=== PATIENT | female | born 1980 | race Hispanic/Latino ===

== ENCOUNTER 2016-04-29 10:38 | Emergency (ER) | payer OTHER ==
[~2016-04-29] VITALS: Ht 167.6 cm; Wt 72.3 kg
[~2016-04-29 10:38] MED LIST: BIRTH CONTROL PILL PO; ENDOCET 5-3251 EACH PO; ESTRADIOL1 MG PO; IBUPROFEN800 MG PO; MOTRIN600 MG PO; MOTRIN800 MG PO; MULTIPLE VITAM1 EAC1 PO; WOMEN'S DAILY1 EAC1 PO
[2016-04-29 11:33] LABS: HEMATOCRIT 34.3 % (36.0-46.0); MCH 28.1 PG (29.0-34.0); MCHC 33.8 G/DL (30.0-36.0); MCV 83.1 FL (83-99); MEAN PLAT.VOLUME 10.4 uM^3 (9.5-12.4); PLATELET COUNT 352 K/uL (156-360); RBC DIS.WIDTH-CV 13.9 % (11.8-14.6); RBC DIS.WIDTH-SD 40.3 % (39-53); RED BLOOD COUNT 4.13 M/uL (3.80-5.20); WHITE BLOOD COUNT 8.9 K/uL (4.1-10.2)
[2016-04-29 11:44] LABS: CHLORIDE 110 mEq/L (99-109); POTASSIUM 3.8 mEq/L (3.7-5.4); SODIUM 140 mEq/L (136-147)
[2016-04-29 11:46] LABS: GLUCOSE 87 mg/dL (70-99)
[2016-04-29 11:47] LABS: ANION GAP 9 MEQ/L (2-14)
[2016-04-29 11:48] LABS: TOTAL BILIRUBIN 0.3 mg/dL (0.0-1.0)
[2016-04-29 11:49] LABS: ALKALINE PHOSPHATASE 55 IU/L (3-129)
[2016-04-29 11:50] LABS: GFR ESTIMATE (CALCULATED) > 59 mL/min/
[2016-04-29 11:51] LABS: UREA NITROGEN (BUN) 9 mg/dL (9-23)
[2016-04-29] MEDS ORDERED: FLEXERIL10 MG PO (12:59)
[2016-04-29] MEDS ORDERED: MOTRIN800 MG PO (12:59)
[2016-04-29 13:11] VITALS: BP 121/74
== END 2016-04-29 13:15 | disposition home or self-care (01) ==
LOC: EME 10:38
PROVIDERS: Emergency Medicine
DX: S30.1XXA Contusion of abdominal wall, initial encounter (principal); M54.5 Low back pain; V43.52XA Car driver injured in collision with other type car in traffic accident, initial encounter; Y92.488 Other paved roadways as the place of occurrence of the external cause
CPT/HCPCS: 72132; 74177; 80053; 85027; 99281; 99285; J3010; J7030

== ENCOUNTER 2016-09-13 06:32 | Day surgery (SDC) | payer SELFPAY ==
[~2016-09-13] VITALS: Ht 154.9 cm; Wt 69.0 kg
[~2016-09-13 06:32] MED LIST changes: +FLEXERIL10 MG PO
[2016-09-13 07:11] VITALS: BP 138/77
[2016-09-13] MEDS ORDERED: IBUPROFEN800 MG PO (09:51)
[2016-09-13] MEDS ORDERED: HYDROCODON-ACE1 EAC7 PO (09:52)
[2016-09-13 10:36] VITALS: BP 119/74
[2016-09-13 11:30] VITALS: BP 120/70
[2016-09-18 09:48] LABS: INTERNAL CONTROL VALID? YES
== END 2016-09-13 11:45 | disposition home or self-care (01) ==
LOC: SDC 06:32
PROVIDERS: Obstetrics & Gynecology
PROC: 0UN98ZZ Release Uterus, Via Natural or Artificial Opening Endoscopic (ICD-10-PCS; principal; 2016-09-13)
DX: Q51.2 Other doubling of uterus (principal); Z82.49 Family history of ischemic heart disease and other diseases of the circulatory system
CPT/HCPCS: 84703; J1100; J1170; J1885; J2250; J2405; J2765; J3010